=== PATIENT | male | born 1945 | race Caucasian/White ===

== ENCOUNTER 2017-12-17 23:30 | Observation (INO) ==
--- NOTE | 2017-12-18 00:12 | ED ---
HPI General Chief Complaint: Chest Pain Stated Complaint: Chest Pain Time Seen by Provider: 12/18/17 00:04 Source: patient Mode of arrival: ambulatory Limitations: no limitations History of Present Illness HPI narrative: 72-year-old male presents to the emergency department by private transportation for complaint of left-sided chest pain 7/10 in intensity nonradiating with no shortness of breath sweats nausea or vomiting. Patient has prior history of CAD with small inferior MN and stents placed in 2001. Patient has had no recurrent cardiac catheterization since that time. Patient did have nuclear stress test in 2003 which showed no wall abnormality and had an ejection fraction of 63% at [facility] and reportedly normal stress tests 2014, 2015, 2016 in [place]. Patient presently has no local physician. 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 Patient denies aspirin use or nitroglycerin use and has no sublingual nitroglycerin to use as needed. Patient continues to smoke cigarettes. Patient denies personal history of hypertension dyslipidemia or diabetes. Patient states due to persistent symptoms decided to come to the emergency room for evaluation. MD complaint: Reports chest pain STEMI Alert: No Onset (ago): hour(s) Duration: intermittent Onset: during rest Pain location: Reports left chest Severity: severe Severity scale (1-10): 7 Quality: Reports tightness, heaviness, dull, similar to prior MN and other (Not pleuritic) Pain radiation: Reports none Relieving factors: nothing Exacerbating factors: exertion Context: Denies recent illness, recent surgery, recent immobilization, recent travel, trauma/injury, new medications and history of DVT/PE Associated symptoms: Reports dyspnea (on exertion); Denies nausea, vomiting, diaphoresis, sense of impending doom, syncope, palpitations, fever, cough and leg swelling Treatments prior to arrival chest pain: Reports none Related Data Home Medications Medication Instructions Recorded Confirmed Celebrex 12/17/17 aspirin 81 mg PO DAILY 12/17/17 12/17/17 Allergies Allergy/AdvReac Type Severity Reaction Status Date / Time formaldehyde Allergy Cardiac Verified 12/17/17 23:58 Arrest PHERSON(?) Allergy Mild BLISTERS Uncoded 06/04/05 14:11 Review of Systems ROS: all other systems reviewed are negative PMFSH History History Provided By: Patient (CAD, MN, stent x 1 2001; tobacco use) Surgical History Surgical History H/O cardiac catheterization (Acute) Social History Social History Substance History: No History of Abuse Second Hand Smoke Exposure: Yes Smoking Status: Current every day smoker Tobacco Type: Cigarettes How Often Do You Have a Drink Containing Alcohol: Never Recent Travel in [facility] within the Last 8 Weeks: No Recent Out of Country Travel within the Last 8 Weeks: No Immunization History Tetanus Immunization: <5 Years Exam Narrative Exam Narrative: GENERAL: Well-nourished, well-developed patient. No acute distress no respiratory distress. SKIN: Focused skin assessment warm/dry. HEAD: Normocephalic. EYES: No scleral icterus. No injection or drainage. NECK: Supple, trachea midline. No JVD or lymphadenopathy. CARDIOVASCULAR: Regular rate and rhythm without murmurs, gallops, or rubs. RESPIRATORY: Breath sounds equal bilaterally. No accessory muscle use. GASTROINTESTINAL: Abdomen soft, non-tender, nondistended. MUSCULOSKELETAL: No cyanosis, or edema. BACK: Nontender without obvious deformity. No CVA tenderness. Course Initial Documented Vital Signs Temperature 98.5 F 12/17/17 23:42 Pulse Rate 76 12/17/17 23:42 Respiratory Rate 16 12/17/17 23:42 Blood Pressure 168/80 H 12/17/17 23:42 Pulse Oximetry 98 12/17/17 23:42 Last Documented Vital Signs Temperature 98.5 F 12/17/17 23:42 Pulse Rate 54 L 12/18/17 02:00 Respiratory Rate 18 12/18/17 02:00 Blood Pressure 122/66 12/18/17 02:00 Pulse Oximetry 98 12/18/17 02:00 Medical Decision Making [facility] Narrative Medical decision making narrative: 72-year-old male with known coronary stent from 2001 presents with chest pain for several hours 7/10 in intensity; patient placed on quality assurance monitor chassis IV access obtained specimens collected and sent for resulting EKG performed shows normal sinus rhythm rate [address] elevation injury pattern or ectopy noted patient administered aspirin 162 mg by mouth as well as supple nitroglycerin Chest x-ray no acute changes no lobar infiltrate no vascular congestion cardiomegaly effusion or pneumothorax, EKG sinus rhythm no acute ST elevation injury pattern or ectopy noted and cardiac enzymes troponin I and CK-MB values are in normal range. Patient will be admitted to chest pain center per protocol. Patient has received oral potassium replacement. Medical Screen Exam Complete: Yes Emergency Medical Condition: Yes Differential Diagnosis Differential Diagnosis: Chest pain, ACS, MN, PE, dissection Medical Records Medical records reviewed: Yes I reviewed the patient's medical records. Lab Data Lab results reviewed: Yes I reviewed the patient's lab results. Result diagrams: 12/18/17 00:30 12/18/17 00:30 Lab Results 12/18/17 12/18/17 12/18/17 Range/Units 00:30 00:30 00:30 WBC 5.8 (4.0-11.0) th/mm3 RBC 4.61 (4.50-5.90) mil/mm3 Hgb 14.7 (13.0-17.0) gm/dL Hct 43.7 (39.0-51.0) % MCV 94.6 (80.0-100.0) fL MCH 32.0 (27.0-34.0) pg MCHC 33.8 (32.0-36.0) % RDW 13.5 (11.6-17.2) % Plt Count 129 L (150-450) th/mm3 MPV 9.9 (7.0-11.0) fL Neut % (Auto) 52.0 (16.0-70.0) % Lymph % (Auto) 31.4 (9.0-44.0) % [place] % (Auto) 11.4 H (0.0-8.0) % Eos % (Auto) 4.1 H (0.0-4.0) % Baso % (Auto) 1.1 (0.0-2.0) % Neut # (Auto) 3.0 (1.8-7.7) th/mm3 Lymph # (Auto) 1.8 (1.0-4.8) th/mm3 [place] # (Auto) 0.7 (0.0-0.9) th/mm3 Eos # (Auto) 0.2 (0.0-0.4) th/mm3 Baso # (Auto) 0.1 (0.0-0.2) th/mm3 WBC Differential . Differential Comment Auto diff final PT 11.3 (9.8-11.6) sec INR 1.1 Ratio APTT 27.7 (24.3-30.1) sec Sodium 140 (136-145) meq/L Potassium 3.3 L (3.5-5.1) meq/L Chloride 107 (98-107) meq/L Carbon Dioxide 24.1 (21.0-32.0) meq/L Anion Gap 9 (5-15) meq/L BUN 9 (7-18) mg/dL Creatinine 0.95 (0.60-1.30) mg/dL Estimated GFR 78 L (>89) mL/min Random Glucose 93 (74-106) mg/dL Calcium 8.4 L (8.5-10.1) mg/dL Magnesium 1.9 (1.5-2.5) mg/dL Total Bilirubin 0.4 (0.2-1.0) mg/dL AST 30 (15-37) U/L ALT 42 (12-78) U/L Alkaline Phosphatase 101 (45-117) U/L Total Creatine Kinase 180 (39-308) U/L CK-MB (CK-2) 2.5 (0.5-3.6) ng/mL Troponin I Less than 0.02 L (0.02-0.05) ng/mL Total Protein 7.0 (6.4-8.2) g/dL Albumin 3.2 L (3.4-5.0) g/dL Imaging Data Radiologist's impression: Chest X-Ray 12/18/17 00:04 CONCLUSION: No evidence of acute cardiopulmonary disease. ECG Data EKG Prior to Arrival: No Prior ECG tracings: not available for review Interpretation: EKG: Normal sinus rhythm rate 73 normal axis and intervals no acute ST elevation injury pattern or ectopy noted Discharge Plan Discharge Disposition Patient Disposition: 30 Still Patient Discharge Condition Condition: Stable Discharge Details Diagnosis: Chest pain Physicians Team ED Provider: Hawa Galvez Primary Care Provider: Primary Care Zhane Mcmahan Attending Provider: Nino Ji Status ED Status: Admitted Observation Patient
[2017-12-18 00:44] LABS: Baso # (Auto) 0.1 th/mm3 (0.0-0.2); Baso % (Auto) 1.1 % (0.0-2.0); Eos # (Auto) 0.2 th/mm3 (0.0-0.4); Eos % (Auto) 4.1 % (0.0-4.0); Hematocrit 43.7 % (39.0-51.0); Hemoglobin 14.7 gm/dL (13.0-17.0); Lymph # (Auto) 1.8 th/mm3 (1.0-4.8); Lymph % (Auto) 31.4 % (9.0-44.0); Mean Corpuscular HGB Conc 33.8 % (32.0-36.0); Mean Corpuscular Volume 94.6 fL (80.0-100.0); Mean Platelet Volume 9.9 fL (7.0-11.0); Mono # (Auto) 0.7 th/mm3 (0.0-0.9); Mono % (Auto) 11.4 % (0.0-8.0); Platelet Count 129 th/mm3 (150-450); Red Blood Count 4.61 mil/mm3 (4.50-5.90); Red Cell Distribution Width 13.5 % (11.6-17.2); White Blood Count 5.8 th/mm3 (4.0-11.0)
--- NOTE | 2017-12-18 00:46 | XR ---
EXAM DATE: 12/18/2017 12:30 AM EDT AGE/SEX: 72 years / Male INDICATIONS: Chest pain. CLINICAL DATA: This is the patient's initial encounter. Patient reports that signs and symptoms have been present for 1 day and indicates a pain score of 6/10. MEDICAL/SURGICAL HISTORY: Chronic obstructive pulmonary disease. Coronary artery stent. COMPARISON: No prior exams available for comparison. FINDINGS: A single AP view of the chest demonstrates the lungs to be symmetrically aerated without evidence of mass, infiltrate or effusion. The cardiomediastinal contours are unremarkable. Osseous structures a re intact. CONCLUSION: No evidence of acute cardiopulmonary disease. Electronically signed by: Kaushik Yen MD 12/18/2017 12:44 AM EDT
[2017-12-18 00:47] LABS: Activated Partial Thrombo Time 27.7 sec (24.3-30.1); INR 1.1 Ratio; Prothrombin Time 11.3 sec (9.8-11.6)
[2017-12-18] MEDS: Sodium Chlor 0.9% Inj 500 ML IV.CONT SCH ×2 (00:55→08:05)
[2017-12-18 00:58] LABS: Alanine Aminotransferase 42 U/L (12-78); Albumin 3.2 g/dL (3.4-5.0); Anion Gap 9 meq/L (5-15); Aspartate Aminotransferase 30 U/L (15-37); Blood Urea Nitrogen 9 mg/dL (7-18); Calcium 8.4 mg/dL (8.5-10.1); Carbon Dioxide 24.1 meq/L (21.0-32.0); Chloride 107 meq/L (98-107); Glomerular Filtration Rate 78 mL/min (>89); Glucose,Random 93 mg/dL (74-106); Magnesium 1.9 mg/dL (1.5-2.5); Potassium 3.3 meq/L (3.5-5.1); Sodium 140 meq/L (136-145)
[2017-12-18 01:02] LABS: Alkaline Phosphatase 101 U/L (45-117); Creatine Kinase 180 U/L (39-308)
[2017-12-18] MEDS ORDERED: Ketorolac Inj 30 MG/ML (IVP) Vial IV.PUSH ONE (01:13)
[2017-12-18] MEDS ORDERED: Acetaminophen 325 MG Tablet PO ONE (01:13)
[2017-12-18] MEDS ORDERED: Sodium Chlor 0.9% Inj 500 ML IV.SIG ONE (01:14)
[2017-12-18 01:15] LABS: Creatine Kinase MB 2.5 ng/mL (0.5-3.6)
[2017-12-18 04:11] LABS: Creatine Kinase 156 U/L (39-308)
[2017-12-18 07:39] LABS: Creatine Kinase 160 U/L (39-308)
[2017-12-18 07:52] LABS: Creatine Kinase MB 2.4 ng/mL (0.5-3.6)
--- NOTE | 2017-12-18 08:14 | P.HPCA ---
History of Present Illness Primary Care Physician: Primary Care Physician-[place] Chief Complaint: Chest pain History of Present Illness: 72 year old male with history of CAD, x1 cardiac stent (2001) presents to ER for further evaluation of intermittent, chest tightness x6 days. Location generalized chest. Characterized as tightness. Mild in severity. No radiation. No associated symptoms. Duration 5-10 minutes. No precipitating or relieving factors. Yesterday tightness became more severe around noon. During the day discomfort increasing in frequency, intensity, and duration with associated symptoms of nausea, x1 emesis, dyspnea and diaphoreses. Around 10-11pm, discomfort became more severe, rated between 8-9/10 therefore came to ER for further evaluation. Currently discomfort 2/10. No radiation. Constant since 2300. No precipitating or relieving factors. Endorses discomfort reminded him of when he required cardiac stent. 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 Endorses Lexiscan completed due to similar presenting symptoms. No recent illness, injury, or increase in sputum production. Past cardiac testing 11/30/13 Lexiscan-unremarkable, no evidence of ischemia, EF 63%. Reports normal Lexiscan's in 2014, 2015, and 2016. Denies ever having a NH. Cardiac stent placed after cardiac testing in 2001 ( [place], [place]) Social history Known CAD with x1 cardiac stent. Borderline diabetes. Reports being on bp and cholesterol in the past but was taken off them, reason unknown. Lifelong smoker, currently smoking 1/2 pack daily. Decreased from 2 packs/ daily. No alcohol or drug use. 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 Lives with his girlfriend. Family history Brother [place] age 55. - Diagnosis (1) Chest pain of unknown etiology (2) History of coronary artery disease (3) Tobacco abuse (4) Hypertension (5) Hypokalemia Review of Systems All other systems reviewed negative except as stated in HPI PMFSH - History History Provided By: Patient (CAD, NH, stent x 1 2001; tobacco use), Family Member - Medical History Medical History: Medical History (Last Updated 12/18/17 @ 10:10 by NATASHA Case) Borderline diabetes CAD (coronary artery disease) Hypertension - Surgical History Surgical History: Surgical History (Last Updated 12/18/17 @ 08:11 by NATASHA Case) H/O heart artery stent H/O knee surgery H/O shoulder surgery - Family History Family History: Family History (Last Updated 12/18/17 @ 08:12 by NATASHA Case) Brother Myocardial infarct - Tobacco History Second Hand Smoke Exposure: Yes Tobacco Use In Past 30 Days: Yes Smoking Status: Current every day smoker (decreased from 2 packs/daily) Tobacco Type: Cigarettes Packs Per Day: 0.5 Years Smoked: 50 - Alcohol History How Often Do You Have a Drink Containing Alcohol: Never - Substance Use History Substance History: No History of Abuse - Travel History Recent Travel in the [place] Within the Last 8 Weeks: No Recent Travel Out of the Country Within the Last 8 Weeks: No - Immunization History Tetanus Immunization: <5 Years Medications and Allergies Active Medications: Active Medications Aspirin (Aspirin) 325 mg PO DAILY [facility] Sodium Chloride (Ns Inj) 500 mls @ 70 mls/hr IV.CONT .Q7H9M [facility] Last Admin: 12/18/17 08:05 Dose: Not Given Nitroglycerin (Nitrostat Sl) 0.4 mg SL Q5M PRN PRN Reason: CHEST PAIN Sodium Chloride (Ns Flush) 2 ml IV.FLUSH UNSCH PRN PRN Reason: FLUSH AFTER USING IV ACCESS Sodium Chloride (Ns Flush) 2 ml IV.FLUSH BID [facility] Sodium Chloride (Ns Flush) 2 ml IV.FLUSH PRN PRN PRN Reason: FLUSH AFTER USING IV ACCESS Allergies Allergy/AdvReac Type Severity Reaction Status Date / Time formaldehyde Allergy Cardiac Verified 12/17/17 23:58 Arrest PHERSON(?) Allergy Mild BLISTERS Uncoded 06/04/05 14:11 Home Medications Medication Instructions Recorded Confirmed Type Celebrex 12/17/17 History aspirin 81 mg PO DAILY 12/17/17 12/17/17 History Exam Vital signs: Vital Signs 12/17/17 23:42 12/17/17 23:59 12/18/17 00:19 Temperature 98.5 F Pulse Rate 76 71 74 Respiratory Rate 16 20 20 Blood Pressure 168/80 H 159/80 H 147/68 H Pulse Oximetry 98 98 96 12/18/17 00:40 12/18/17 00:56 12/18/17 00:57 Temperature Pulse Rate 71 64 Respiratory Rate 17 20 Blood Pressure 131/64 131/60 Pulse Oximetry 95 95 96 12/18/17 01:10 12/18/17 01:35 12/18/17 01:36 Temperature Pulse Rate 70 69 Respiratory Rate 18 18 Blood Pressure 120/59 L 127/60 Pulse Oximetry 97 96 97 12/18/17 02:00 12/18/17 04:00 12/18/17 05:05 Temperature 97.7 F Pulse Rate 54 L 76 75 Respiratory Rate 18 20 Blood Pressure 122/66 153/87 H Pulse Oximetry 98 96 12/18/17 07:49 Temperature Pulse Rate 75 Respiratory Rate 18 Blood Pressure 157/88 H Pulse Oximetry 96 Intake & Output 12/17/17 12/18/17 12/18/17 18:59 06:59 18:59 Intake Total 1000 / 1000 Balance 1000 / 1000 Weight 136.078 kg Intake: IV 1000 / 1000 NS Inj 500 ML @ 70 mls/hr IV. 500 / 500 CONT .Q7H9M [facility] Rx#:[id number] NS Inj 500 ML @ Wide Open IV. 500 / 500 SIG BOLUS ONE Rx#:[id number] Narrative: GENERAL: Alert WN, WD, NAD, pleasant, obese, elderly male who appears older than stated age HEAD: NC, AT EYES: Sclera clear, conjunctiva without injection, pupils equal and round ENT: Mucous membranes pink and moist NECK: Supple, no masses, trachea midline CV: RRR, without murmur, rub, gallop, no JVD, S1-S2 no S3-S4. No carotid bruits. Chest pain not reproducible. RESP: Diminished lungs throughout bilateral, no crackles, wheeze, or rhonchi, prolonged expiratory phase, symmetrical chest rise, nonlabored, able to speak in full sentences ABD: Soft, NT, ND, no masses, positive bowel tones EXT: Pulses +2x4, no dependent edema MS: Normal tone x4 extremities, nontender, no obvious deformities, full range of motion NEURO: CN II through CN XII grossly intact, motor strength 5/5 PSYCH: A+O x3, pleasant affect, appropriate speech, mood, insight and judgment SKIN: Normal turgor, normal texture, no lesions, no rashes, brisk cap refill, clubbing, even hair distribution, solar damage Results 12/18/17 00:30 11/01/18 00:30 Cardiac Enzymes 12/18/17 12/18/17 12/18/17 Range/Units 00:30 03:29 06:15 AST 30 (15-37) U/L CK-MB (CK-2) 2.5 2.4 (0.5-3.6) ng/mL Troponin I Less than 0.02 L Less than 0.02 L Less than 0.02 L (0.02-0.05) ng/mL Coagulation 12/18/17 Range/Units 00:30 PT 11.3 (9.8-11.6) sec APTT 27.7 (24.3-30.1) sec CBC 12/18/17 Range/Units 00:30 WBC 5.8 (4.0-11.0) th/mm3 RBC 4.61 (4.50-5.90) mil/mm3 Hgb 14.7 (13.0-17.0) gm/dL Hct 43.7 (39.0-51.0) % Plt Count 129 L (150-450) th/mm3 Neut # (Auto) 3.0 (1.8-7.7) th/mm3 Lymph # (Auto) 1.8 (1.0-4.8) th/mm3 [place] # (Auto) 0.7 (0.0-0.9) th/mm3 Eos # (Auto) 0.2 (0.0-0.4) th/mm3 Baso # (Auto) 0.1 (0.0-0.2) th/mm3 Comprehensive Metabolic Panel 12/18/17 Range/Units 00:30 Sodium 140 (136-145) meq/L Potassium 3.3 L (3.5-5.1) meq/L Chloride 107 (98-107) meq/L Carbon Dioxide 24.1 (21.0-32.0) meq/L BUN 9 (7-18) mg/dL Creatinine 0.95 (0.60-1.30) mg/dL Calcium 8.4 L (8.5-10.1) mg/dL AST 30 (15-37) U/L ALT 42 (12-78) U/L Alkaline Phosphatase 101 (45-117) U/L Total Protein 7.0 (6.4-8.2) g/dL Albumin 3.2 L (3.4-5.0) g/dL Intake and Output 12/17/17 12/18/17 12/18/17 22:59 06:59 14:59 Intake Total 1000 / 1000 Balance 1000 / 1000 Intake: IV 1000 / 1000 NS Inj 500 ML @ 70 mls/hr IV. 500 / 500 CONT .Q7H9M [facility] Rx#:[id number] NS Inj 500 ML @ Wide Open IV. 500 / 500 SIG BOLUS ONE Rx#:[id number] Other: Weight 136.078 kg - Imaging and Cardiology Imaging: Impressions Chest X-Ray 12/18/17 00:04 CONCLUSION: No evidence of acute cardiopulmonary disease. EKG interpretations - EKG EKG results cardiology: sinus rhythm, normal axis, normal QRS, normal ST/T Caprini VTE Risk Assessment Caprini VTE Risk Assessment: Moderate/High Risk (score >= 2) Caprini Risk Assessment Model: Point Value = 1 Point Value = 2 Point Value = 3 Point Value = 5 Age 41-60 Minor surgery BMI > 25 kg/m2 Swollen legs Varicose veins or History of unexplained or recurrent spontaneous Oral contraceptives or hormone replacement Sepsis (< 1 month) Serious lung disease, including pneumonia (< 1 month) Abnormal pulmonary function Acute myocardial infarction Congestive heart failure (< 1 month) History of inflammatory bowel disease Medical patient at bed rest Age 61-74 Arthroscopic surgery Major open surgery (> 45 min) Laparoscopic surgery (> 45 min) Malignancy Confined to bed (> 72 hours) Immobilizing plaster cast Central venous access Age >= 75 History of VTE Family history of VTE Factor V Leiden Prothrombin [id number] Lupus anticoagulant Anticardiolipin antibodies Elevated serum homocysteine Heparin-induced thrombocytopenia Other congenital or acquired thrombophilia Stroke (< 1 month) Elective arthroplasty Hip, pelvis, or leg fracture Acute spinal cord injury (< 1 month) Prophylaxis Regimen: Total Risk Factor Score Risk Level Prophylaxis Regimen 0-1 Low Early ambulation 2 Moderate Order ONE of the following: *Sequential Compression Device (SCD) *Heparin 5000 units SQ BID 3-4 Higher Order ONE of the following medications: *Heparin 5000 units SQ TID *Enoxaparin/Lovenox 40 mg SQ daily (WT < 150 kg, CrCl > 30 mL/min) *Enoxaparin/Lovenox 30 mg SQ daily (WT < 150 kg, CrCl > 10-29 mL/min) *Enoxaparin/Lovenox 30 mg SQ BID (WT < 150 kg, CrCl > 30 mL/min) AND/OR *Sequential Compression Device (SCD) 5 or more Highest Order ONE of the following medications: *Heparin 5000 units SQ TID (Preferred with Epidurals) *Enoxaparin/Lovenox 40 mg SQ daily (WT < 150 kg, CrCl > 30 mL/min) *Enoxaparin/Lovenox 30 mg SQ daily (WT < 150 kg, CrCl > 10-29 mL/min) *Enoxaparin/Lovenox 30 mg SQ BID (WT < 150 kg, CrCl > 30 mL/min) AND *Sequential Compression Device (SCD) Assessment and Plan - Assessment (1) Chest pain of unknown etiology Code(s): R07.89 - Other chest pain Status: Acute Plan: Admitted to chest pain center. ACS ruled out with 3 sets of EKGs and cardiac enzymes. Monitored on telemetry overnight, telemetry reviewed and without any concerning findings. Will be seen and evaluated by Dr. Artie Knight this morning. Discussed likely proceeding with chemical cardiac testing later this morning. Patient drank a can of soda before coming to ER around 2330pm. (2) History of coronary artery disease Code(s): Z86.79 - Personal history of other diseases of the circulatory system Status: Chronic Plan: Discussed benefits of statin therapy with history of CAD in length. Encouraged follow up with his PCP and/or air compressor engineer. 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 (3) Tobacco abuse Code(s): Z72.0 - Tobacco use Status: Chronic Plan: Strongly encouraged and stressed the importance of smoking cessation. Instructed to quit smoking. (4) Hypertension Code(s): I10 - Essential (primary) hypertension Status: Acute Plan: Amlodipine 5 mg po x1 dose now. Continue to monitor tread. Discussed importance of tight blood pressure control. Likely will discharge with an antihypertensive. (5) Hypokalemia Code(s): E87.6 - Hypokalemia Status: Acute Plan: Treated in ER, 20 meq KCL. (4) Hypertension Qualifiers: Hypertension type: unspecified Qualified Code(s): I10 - Essential (primary) hypertension
[2017-12-18] MEDS ORDERED: amLODIPine 5 MG Tablet PO ONE (08:45)
[2017-12-18] MEDS ORDERED: Aspirin 325 MG Tablet PO SCH (09:00)
[2017-12-18] MEDS ORDERED: Regadenoson Inj 0.4 MG/5 ML Syringe IV.PUSH ONE (12:14)
--- NOTE | 2017-12-18 13:48 | NM ---
EXAM DATE: 12/18/2017 1:31 PM EDT AGE/SEX: 72 years / Male INDICATIONS:Angina. . Left chest pain. CLINICAL DATA: This is the patient's initial encounter. Patient reports that signs and symptoms have been present for 1 day and indicates a pain score of 7/10. MEDICAL/SURGICAL HISTORY: Hypertension. Diabetes mellitus type II. Coronary artery stent. Knee and shoulder surgery. COMPARISON: No prior exams available for comparison. DOSE: 11.0 mCi Tc 99m Myoview at rest 35.2 mCi [id number] at stress 0.4 mg Lexiscan STRESS SYMPTOMS: Shortness of breath and chest tightness. EJECTION FRACTION: 63 % TECHNIQUE: The patient underwent pharmacologic stress with infusion of prescribed dose. Continuous ECG tracing was monitored during stress. Gated SPECT imaging was performed after stress and conventi onal SPECT imaging was performed at rest. The examination was performed on a SPECT/CT scanner, both attenuation and non-corrected datasets were reviewed. FINDINGS: Distribution: The maximum perfused segment at stress is in the inferoseptal wall. Perfusion Study: The pattern of perfusion at stress is within normal limits. Gated Study: There are intact wall motion and wall thickening without hypokinetic or dyskinetic segm ents. The ejection fraction is calculated at 63%. RISK CATEGORY: Low (<1% Annual Motality Rate) CONCLUSION: 1. No reversible perfusion defect to indicate stress-induced myocardial ischemia identified. Electronically signed by: Pj Felton MD 12/18/2017 1:46 PM EDT
--- NOTE | 2017-12-18 13:51 | ECG ---
Date Performed: 12/18/2017 Time Performed: 03:54:24 PTAGE: 72 years EKG: SINUS BRADYCARDIA BORDERLINE ECG WARNING: DATA QUALITY MAY AFFECT INTERPRETATION PREVIOUS TRACING : 05/27/2005 07.44 Since previous tracing, no significant change noted DOCTOR: Artie Knight Interpretating Date/Time 12/18/2017 13:51:12
--- NOTE | 2017-12-18 13:53 | ECG ---
Date Performed: 12/17/2017 Time Performed: 23:54:11 PTAGE: 72 years EKG: Sinus rhythm NORMAL ECG Compared to PREVIOUS TRACING , T wave changes have resolved. DOCTOR: Artie Knight Interpretating Date/Time 12/18/2017 13:52:43
--- NOTE | 2017-12-18 13:59 | ECG ---
Date Performed: 12/18/2017 Time Performed: 05:28:39 PTAGE: 72 years EKG: SINUS BRADYCARDIA WITH SINUS ARRHYTHMIA BORDERLINE ECG PREVIOUS TRACING : 12/18/2017 03.54 Since previous tracing, no significant change noted DOCTOR: Artie Knight Interpretating Date/Time 12/18/2017 13:57:18
--- NOTE | 2017-12-19 14:27 | TR ---
Date Performed: 12/18/2017 Time Performed: 12:17:32 DOCTOR: Artie Knight DRUG LIST: CLINICAL HISTORY: REASON FOR TEST: Angina REASON FOR ENDING: OBSERVATION: CONCLUSION: COMMENTS: Lexiscan stress test was performed under standard four minute protocol. Radionuclide was injected one minute prior to ending the test. No electrocardiographic abormalities were present t o suggest ischemia. Nuclear imaging and interpretation are pending.
== END 2017-12-18 15:17 | disposition home or self-care (01) ==
LOC: NEPC 23:30 → NEDA 23:30 → NEPFCDU 12-18 04:18
PROVIDERS: ADMIT Internal Medicine Cardiovascular Disease; ATTEND Internal Medicine Cardiovascular Disease